=== PATIENT | female | born 1960 | race Caucasian/White ===

== ENCOUNTER 2017-10-29 07:50 | Day surgery (SDC) | payer OTHER ==
[2017-10-28 14:09] VITALS: BMI 38.7
--- NOTE | 2017-10-28 14:14 | HP ---
HISTORY OF PRESENT ILLNESS: Ms. Luther is a pleasant 57-year-old woman presenting for a bilateral C8 radiculopathies that began back in the beginning of the year in February. 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 She h as not treated this, but based on her history would rather move forward with surgery if possible. PAST MEDICAL HISTORY: Significant for asthma, hypercholesterolemia, chronic pain syndrome, depressio n, migraines, hypertension. CURRENT MEDICATIONS: Lyrica, Prozac, atorvastatin, montelukast, Exforge, Flexeril, Advair and albute rol. PAST SURGICAL HISTORY: Cervical fusion x3. Lumbar decompression, hysterectomy, bladder suspension, anal fistulectomy, ____ tendon release and gastric bypass. ALLERGIES: KEFLEX. PHYSICAL EXAMINATION: NEUROLOGIC: The patient is alert and oriented x3. Gait is normal, no ataxia. EXTREMITIES: Upper extremity motor exam is normal. She has a positive Spurling's maneuver bilateral ly. ASSESSMENT: Cervical radiculopathy. PLAN: Dr. Chauhan met with the patient, reviewed imaging and ultimately advocated for a right C7-T1 di skectomy. He explained to the patient the risks, benefits, and alternatives to the procedure. The p atient expressed understanding and would like to move forward with surgery as discussed. I do believ e the patient is mentally competent and capable of making medical decisions for herself and we will m ove forward with surgery as planned.
[2017-10-29] MEDS ORDERED: Levofloxacin 500 mg/D5W 100 ml Premix Bag ONE (08:21)
[2017-10-29] MEDS ORDERED: Clindamycin/D5W 900 mg/50 ml Premix Bag ONE (08:21)
[2017-10-29] MEDS ORDERED: Sodium Chloride 0.9% 0 ML ONE (09:12)
[2017-10-29] MEDS ORDERED: Bupivacaine HCl 0.5%/Epinephrine 1:200,000/PF 30 ml Vial ONE (09:12)
[2017-10-29] MEDS ORDERED: Thrombin 5000 UNITS/5 ML VIAL ONE (09:12)
[2017-10-29] MEDS ORDERED: Bacitracin Zinc Ointment 30 gm TUBE ONE (09:12)
[2017-10-29] MEDS ORDERED: Fentanyl 100 MCG/2 ML VIAL ONE ×2 (09:19→11:26)
--- NOTE | 2017-10-29 11:13 | OP ---
DATE OF PROCEDURE: 10/29/2017 SURGEON: Elmer Chauhan M.D. ASSOC[employer]ATE [employer] SALES: Bill Freeman PA-C. INDICATION: Pain. DIAGNOSES: Right C8 radiculopathy. PROCEDURE: Right C7-T1 hemilaminectomy, medial facetectomy, foraminotomy. ANESTHESIA: General. TECHNIQUE: The patient was brought to the operating room and placed under general anesthesia. She w as flipped from a supine to a prone position on the operating room table. A linear incision was plan angel over the C7-T1 segment. After prepping and draping and after an appropriate operative pause, the incision was created. Soft tissues were swept away from midline on the right. A self-retaining ret ractor was placed in the wound for optimal exposure. After confirming the appropriate level with C-a rm fluoroscopy, a high-speed cutting drill bit as well as 1 and 2 mm Kerrisons were then used to perf orm a hemilaminectomy, medial facetectomy, and foraminotomy of the exiting C8 nerve root. Wound was irrigated. Hemostasis was maintained throughout. The wound was then closed in anatomic layers and a pressure dressing was applied. There were no known procedural complications.
[2017-10-29] MEDS ORDERED: HYDROcodone/Acetaminophen 5/325 mg Tablet ONE (13:34)
== END 2017-10-29 13:45 | disposition home or self-care (01) ==
LOC: SDC 07:50
PROVIDERS: ATTEND Neurological Surgery
PROC: 01N10ZZ Release Cervical Nerve, Open Approach (ICD-10-PCS; principal; 2017-10-29)
DX: M54.12 Radiculopathy, cervical region (principal); E78.00 Pure hypercholesterolemia, unspecified; I10 Essential (primary) hypertension; J45.909 Unspecified asthma, uncomplicated; Z88.1 Allergy status to other antibiotic agents; Z79.899 Other long term (current) drug therapy
CPT/HCPCS: 76001; 96374; A4216; J0131; J0670; J1956; J3010; J3490

== ENCOUNTER 2022-10-23 05:55 | Day surgery (SDC) | payer OTHER ==
[2022-10-22 11:08] VITALS: BMI 37.9
[2022-10-23] MEDS ORDERED: Midazolam HCl 2 mg/2 ml Vial ONE (06:29)
[2022-10-23] MEDS ORDERED: Heparin 10,000 UNITS/ 10 ML VIAL ONE (06:30)
[2022-10-23] MEDS ORDERED: fentaNYL 50 mcg/mL 1 mL Vial ONE (06:30)
[2022-10-23] MEDS ORDERED: Lidocaine 1% (PF) 30 ML VIAL ONE (06:30)
[2022-10-23 07:08] LABS: #Basophils 0.1 thou/uL (0.0-0.2); #Eosinphils 0.4 thou/uL (0.0-0.7); #Monocytes 0.9 thou/uL (0.11-0.59); #Neutrophils 5.8 thou/uL (1.40-6.50); %Basophils 0.6 % (0.0-1.0); %Eosinophils 3.6 % (0.0-10.0); %Lymphocytes 29.5 % (21.0-51.0); %Monocytes 8.9 % (0.0-10.0); %Neutrophils 57.1 % (42.0-75.0); Hematocrit 43.3 % (36.0-47.0); Hemoglobin 14.7 g/dL (12.0-16.0); Mean Corpuscular HGB CONC 33.9 g/dL (32.0-36.0); Mean Corpuscular Hemoglobin 30.3 pg (27.0-31.0); Mean Corpuscular Volume 89.3 fl (78.0-98.0); Platelet Count 228 10x3/uL (130-400); RBC Distribution Width 13.1 % (11.5-14.5); Red Blood Cell (RBC) Count 4.85 mill/uL (4.20-5.40); White Blood Cell (WBC) Count 10.2 10x3/uL (4.8-10.8)
[2022-10-23] MEDS ORDERED: Protamine Sulfate 50 MG/5 ML VIAL ONE (07:44)
[2022-10-23] MEDS ORDERED: Iopamidol 370 76% 100 ML VIAL ONE (10:02)
[2022-10-23] MEDS ORDERED: Acetaminophen/Codeine 30-300mg Tablet ONE (12:11)
== END 2022-10-23 14:50 | disposition home or self-care (01) ==
LOC: CCL 05:55
PROVIDERS: ATTEND Internal Medicine Cardiovascular Disease
DX: R94.39 Abnormal result of other cardiovascular function study (principal); I25.10 Atherosclerotic heart disease of native coronary artery without angina pectoris; I10 Essential (primary) hypertension; E78.00 Pure hypercholesterolemia, unspecified; F17.210 Nicotine dependence, cigarettes, uncomplicated; Z88.1 Allergy status to other antibiotic agents; Z79.82 Long term (current) use of aspirin; Z79.899 Other long term (current) drug therapy; Z82.49 Family history of ischemic heart disease and other diseases of the circulatory system
CPT/HCPCS: 80061; 85025; 85347; 93005; 93010; 93458; 99152; C1769; J1644; J2001; J2250; J2720; J3010; Q9967

== ENCOUNTER 2024-04-29 13:47 | Outpatient (CLI) | payer OTHER ==
[2024-04-29 15:10] LABS: #Basophils 0.06 10x3/uL (0.0-0.2); %Basophils 0.5 % (0.0-1.0); %Eosinophils 1.5 % (0.0-10.0); %Lymphocytes 16.9 % (21.0-51.0); %Monocytes 7.1 % (0.0-10.0); %Neutrophils 73.6 % (42.0-75.0); Hematocrit 46.6 % (36.0-47.0); Hemoglobin 15.9 g/dL (12.0-16.0); Mean Corpuscular HGB CONC 34.1 g/dL (32.0-36.0); Mean Corpuscular Hemoglobin 30.3 pg (27.0-31.0); Mean Corpuscular Volume 88.9 fL (78.0-98.0); Mean Platelet Volume 10.8 fL (7.4-10.4); Platelet Count 290 10x3/uL (130-400); Red Blood Cell (RBC) Count 5.24 mill/uL (4.20-5.40)
== END 2024-04-29 13:48 | disposition home or self-care (01) ==
LOC: LABBT 13:47
PROVIDERS: ATTEND Orthopaedic Surgery Hand Surgery
DX: Z01.818 Encounter for other preprocedural examination (principal); M65.4 Radial styloid tenosynovitis [de Quervain]
CPT/HCPCS: 85025; 93005; 93010

== ENCOUNTER 2024-12-31 08:33 | Outpatient (CLI) | payer OTHER ==
[2024-12-31 09:22] LABS: #Basophils 0.05 10x3/uL (0.0-0.2); #Eosinophils 0.31 10x3/uL (0.0-0.7); #Monocytes 0.74 10x3/uL (0.11-0.59); #Neutrophils 6.47 10x3/uL (1.40-6.50); %Basophils 0.5 % (0.0-1.0); %Eosinophils 2.9 % (0.0-10.0); %Lymphocytes 28.1 % (21.0-51.0); %Monocytes 7.0 % (0.0-10.0); %Neutrophils 61.1 % (42.0-75.0); Hematocrit 44.0 % (36.0-47.0); Hemoglobin 14.4 g/dL (12.0-16.0); Mean Corpuscular Hemoglobin 29.3 pg (27.0-31.0); Mean Corpuscular Volume 89.4 fL (78.0-98.0); Platelet Count 274 10x3/uL (130-400); Red Blood Cell (RBC) Count 4.92 mill/uL (4.20-5.40); White Blood Cell (WBC) Count 10.58 10x3/uL (4.8-10.8)
[2024-12-31 09:31] LABS: ALT (SGPT) 23 U/L (Less than 34); AST (SGOT) 36 U/L (11-34); Albumin 4.2 g/dL (3.1-4.5); Alkaline Phosphatase 103 U/L (40-110); Anion Gap 14 mmol/L (10-20); BUN (Urea Nitrogen) 12 mg/dL (9.8-20.1); Bilirubin, Total 0.5 mg/dL (0.3-1.2); Calc. Creatinine Clearance 0 mL/min (70-130); Calcium 9.8 mg/dL (7.8-10.44); Carbon Dioxide 28 mmol/L (23-31); Chloride 107 mmol/L (98-107); Globulin 2.9 g/dL (2.4-3.5); Glucose 99 mg/dL (80-115); Potassium 5.0 mmol/L (3.5-5.1); Sodium 144 mmol/L (136-145)
[2024-12-31 09:56] LABS: INR-International Normal Ratio 0.9; Prothrombin Time 12.5 sec (12.0-14.7)
== END 2024-12-31 08:34 | disposition home or self-care (01) ==
LOC: LABBT 08:33
PROVIDERS: ATTEND Orthopaedic Surgery
DX: Z01.818 Encounter for other preprocedural examination (principal); M19.011 Primary osteoarthritis, right shoulder
CPT/HCPCS: 80053; 85025; 85610; 87081; 93005; 93010

== ENCOUNTER 2025-01-06 08:16 | Observation (INO) | payer OTHER ==
[2024-12-31 08:42] VITALS: BMI 40.3
[2025-01-06] MEDS ORDERED: Ropivacaine 0.2% HCl/PF 20 ML ONE (10:28)
[2025-01-06] MEDS ORDERED: Ropivacaine 0.5% HCl/PF (150 MG/30 ML VIAL) ONE (10:28)
[2025-01-06] MEDS ORDERED: Tranexamic Acid 1,000 MG/10 ML VIAL ONE (10:39)
[2025-01-06] MEDS ORDERED: Vancomycin HCl 1.5 GM VIAL ONE ×2 (10:40)
[2025-01-06] MEDS ORDERED: Lidocaine 1% PF 5 ML VIAL ONE (11:07)
[2025-01-06] MEDS ORDERED: Rocuronium Bromide 10 MG/ML (10ML VIAL) ONE ×2 (11:09→12:12)
[2025-01-06] MEDS ORDERED: HYDROcodone/Acetaminophen 10/325 mg Tablet PO PRN (12:00)
[2025-01-06] MEDS ORDERED: Ropivacaine 0.2% 550 ML 550 ML NERVE BLCK SCH (12:00)
[2025-01-06] MEDS ORDERED: Ondansetron PF 4 MG/2 ML Vial IVP PRN (12:00)
[2025-01-06] MEDS ORDERED: CEFAZOLIN 2 GM VIAL ONE (12:10)
[2025-01-06] MEDS ORDERED: SUCCINYLCHOLINE/SOD CL,ISO/PF 200 MG/10 ML SYRINGE FS ONE (12:12)
[2025-01-06] MEDS ORDERED: fentaNYL PF 100 MCG/2 ML SYRINGE ONE (12:13)
[2025-01-06] MEDS ORDERED: PROPOFOL 200 MG/20 ML VIAL ONE (12:24)
[2025-01-06] MEDS ORDERED: Ondansetron PF 4 MG/2 ML Vial ONE (12:44)
[2025-01-06] MEDS ORDERED: LevoFLOXacin D5W 500 mg (100 mL) BAG ONE (12:48)
[2025-01-06] MEDS ORDERED: hydrALAZINE 20 MG/ML VIAL ONE (13:21)
[2025-01-06] MEDS ORDERED: PHENYLEPHRINE-NS 100 MCG/ML 10 ML SYRINGE ONE (13:59)
[2025-01-06] MEDS ORDERED: NEOSTIGMINE 3 MG/3 ML SYRINGE ONE (14:15)
[2025-01-06] MEDS ORDERED: SUGAMMADEX SODIUM 200 MG/2 ML VIAL ONE ×2 (14:17→14:25)
[2025-01-06] MEDS ORDERED: Bisacodyl 10 MG SUPP PR PRN (14:58)
[2025-01-06] MEDS ORDERED: Acetaminophen 325 MG TAB PO PRN (14:58)
[2025-01-06] MEDS ORDERED: Milk Of Magnesia 30 ML UDCUP PO PRN (14:58)
[2025-01-06] MEDS: Ketorolac Tromethamine 30 MG (1 mL) VIAL IVP SCH (16:21)
[2025-01-06] MEDS: Cyclobenzaprine 10 MG TAB PO PRN (17:22)
[2025-01-06] MEDS: FLU (Fluarix Triv) 25-26 (6MOS UP)/PF 45 MCG/0.5 ML Syringe IM ONE (17:30)
[2025-01-06] MEDS ORDERED: Vortioxetine Hydrobromide [Trintellix] 20 MG Tablet PO SCH (21:00)
[2025-01-06] MEDS: Ezetimibe 10 MG TAB PO SCH (21:44)
[2025-01-06] MEDS: Pregabalin 50 MG CAP PO PRN (21:44)
[2025-01-06] MEDS: Famotidine 20 MG TAB PO SCH (21:46)
[2025-01-06] MEDS: Pantoprazole 40 MG DR.TAB PO SCH (21:46)
[2025-01-06] MEDS: Cyanocobalamin (Vitamin B-12) 1,000 MCG TAB PO SCH (21:46)
[2025-01-06] MEDS: Clindamycin/D5W 900 MG in Premix 1 BAG IVPB SCH (21:47)
[2025-01-06] MEDS: Valsartan 80 MG TAB PO SCH (21:47)
[2025-01-06] MEDS: Torsemide 20 MG TAB PO PRN (22:03)
[2025-01-06] MEDS: Albuterol 2.5 MG (3 mL) NEB NEB PRN (22:10)
[2025-01-07] MEDS: Mirabegron ER 25 MG ER.TAB PO SCH (09:08)
[2025-01-07 11:46] VITALS: BP 127/82; TEMP 98.2
[2025-01-07] MEDS: HYDROcodone/Acetaminophen 10/325 mg Tablet PO PRN (12:38)
== END 2025-01-07 13:15 | disposition home or self-care (01) ==
LOC: SDC 08:16 → SURG A 15:41
PROVIDERS: ADMIT Orthopaedic Surgery; ATTEND Orthopaedic Surgery
PROC: 0LS30ZZ Reposition Right Upper Arm Tendon, Open Approach (ICD-10-PCS; principal; 2025-01-06)
DX: M19.011 Primary osteoarthritis, right shoulder (principal); M19.012 Primary osteoarthritis, left shoulder; M75.121 Complete rotator cuff tear or rupture of right shoulder, not specified as traumatic; M75.21 Bicipital tendinitis, right shoulder; I10 Essential (primary) hypertension; E78.5 Hyperlipidemia, unspecified; Z88.1 Allergy status to other antibiotic agents; F17.200 Nicotine dependence, unspecified, uncomplicated; Z79.899 Other long term (current) drug therapy
CPT/HCPCS: 90656; 94640; A4306; C1713; C1776; J0360; J1100; J1885; J1956; J2250; J2405; J2704; J2795; J3010; J3490; J7030; J7611